=== PATIENT | male | born 1980 | race African-American/Black ===

== ENCOUNTER → 2023-11-02 | Outpatient (REF) | payer OTHER ==
[2023-11-02 18:09] LABS: HEMOGLOBIN 13.5 g/dl (13.5-17.5); MEAN CORPUSCULAR HEMOGLOBIN 26.5 pg (27.0-33.0); MEAN CORPUSCULAR HGB CONC 32.9 g/dl (32.0-36.5); MEAN CORPUSCULAR VOLUME 80.4 fl (80.0-96.0); PLATELET COUNT, AUTOMATED 258 10^3/uL (150-450); WHITE BLOOD COUNT 9.4 10^3/uL (4.0-10.0)
[2023-11-02 18:15] LABS: ALBUMIN 3.4 G/DL (3.2-5.2); ALKALINE PHOSPHATASE 88 U/L (46-116); ALT/SGPT 26 U/L (7.0-40); AST/SGOT 18 U/L (<34); BILIRUBIN,TOTAL 0.3 MG/DL (0.3-1.2); BLOOD UREA NITROGEN 10 MG/DL (9-23); CALCIUM LEVEL 8.8 MG/DL (8.5-10.1); CARBON DIOXIDE LEVEL 26 MMOL/L (20-31); CHLORIDE LEVEL 111 MMOL/L (98-107); CHOLESTEROL LEVEL 149 MG/DL (<200); CREATININE FOR GFR 0.79 MG/DL (0.70-1.30); GLOMERULAR FILTRATION RATE > 60.0 (>60); GLUCOSE, FASTING 100 MG/DL (60-100); HDL CHOLESTEROL 33.8 MG/DL (>40); LDL CHOLESTEROL 104.8 MG/DL (<100); NON-HDL-C 115.2 MG/DL; POTASSIUM SERUM 4.7 MMOL/L (3.5-5.1); SODIUM LEVEL 140 MMOL/L (136-145); TOTAL PROTEIN 6.4 G/DL (5.7-8.2); TRIGLYCERIDES LEVEL 52 MG/DL (<150)
[2023-11-02 18:18] LABS: THYROID STIMULATING HORMONE 1.047 uIU/ML (0.55-4.78)
== END ==
LOC: M LAB REF 17:09
PROVIDERS: ATTEND Physician Assistant
DX: Z68.29 Body mass index [BMI] 29.0-29.9, adult (principal); E66.3 Overweight; Z13.220 Encounter for screening for lipoid disorders; Z13.1 Encounter for screening for diabetes mellitus; R03.0 Elevated blood-pressure reading, without diagnosis of hypertension

== ENCOUNTER 2023-11-08 09:10 | Emergency (ER) | payer OTHER ==
[~2023-11-08] VITALS: Ht 182.9 cm; Wt 97.0 kg
[2023-11-08 09:11] VITALS: BP 122/72; TEMP 98.1; O2SAT 100
[2023-11-08 11:02] LABS: RSV AMPLIFICATION NEGATIVE (NEGATIVE)
== END 2023-11-08 11:57 | disposition home or self-care (01) ==
LOC: M ED 09:10
DX: R51.9 Headache, unspecified (principal); M79.18 Myalgia, other site; F17.200 Nicotine dependence, unspecified, uncomplicated

== ENCOUNTER 2024-01-01 18:13 | Inpatient (IN) | payer OTHER ==
[~2024-01-01] VITALS: Ht 182.9 cm; Wt 99.6 kg
[2024-01-01] MEDS: KETOROLAC 30 MG/ML 1ML VIAL IV ONE (20:57)
[2024-01-01 21:00] LABS: BASO % 0.3 % (0.0-1.0); EOS # 0.1 10^3/uL (0.0-0.5); EOS % 0.5 % (0.0-3.0); HEMATOCRIT 39.8 % (42.0-52.0); HEMOGLOBIN 13.3 g/dl (13.5-17.5); LYMPH # 1.5 10^3/uL (1.5-5.0); LYMPH % 9.6 % (24.0-44.0); MEAN CORPUSCULAR HEMOGLOBIN 26.8 pg (27.0-33.0); MEAN CORPUSCULAR HGB CONC 33.4 g/dl (32.0-36.5); MEAN CORPUSCULAR VOLUME 80.1 fl (80.0-96.0); MONO # 1.1 10^3/uL (0.0-0.8); MONO % 7.1 % (2.0-8.0); NEUTROPHILS # 12.8 10^3/uL (1.5-8.5); NEUTROPHILS % 82.1 % (36.0-66.0); PLATELET COUNT, AUTOMATED 220 10^3/uL (150-450); RED BLOOD COUNT 4.97 10^6/uL (4.30-6.10); WHITE BLOOD COUNT 15.6 10^3/uL (4.0-10.0)
[2024-01-01] MEDS ORDERED: ISOVUE-370 76% 100ML VIAL As Ordered ONE (21:04)
[2024-01-01 21:10] LABS: ERYTHROCYTE SEDIMENTATION RATE 53 mm/hr (0-15)
[2024-01-01] MEDS: NS 1,000 ML IV ONE (21:55)
[2024-01-01] MEDS ORDERED: HOME MED LIST COMPLETE! XX SCH (22:40)
[2024-01-01] MEDS: cefTRIAXone SOD 1 GM in D5W MINI-BAG PLUS 50 ML IV ONE (23:00)
[2024-01-02] VITALS (8 sets, daily range): BP systolic 112–148; BP diastolic 67–93; TEMP 97.2–98.2; O2SAT 96–100
[2024-01-02] MEDS ORDERED: ACETAMINOPHEN TAB 650MG DOSE (2X325MG) PO PRN (00:20)
[2024-01-02] MEDS: NS 1,000 ML IV SCH (01:22)
[2024-01-02] MEDS: PIPERACILLIN/TAZOBACTAM SOD 3.375 GM in D5W MINI-BAG PLUS 50 ML IV SCH (01:22)
[2024-01-02 01:53] LABS: Trichomonas vaginalis (AMP) NOT DETECTED (NEGATIVE)
[2024-01-02 02:17] LABS: GC DNA AMPLIFICATION NEGATIVE (NEGATIVE)
[2024-01-02] MEDS: KETOROLAC 30 MG/ML 1ML VIAL IV PRN (02:44)
[2024-01-02 06:29] LABS: BASO % 0.2 % (0.0-1.0); EOS # 0.2 10^3/uL (0.0-0.5); EOS % 1.3 % (0.0-3.0); HEMATOCRIT 37.5 % (42.0-52.0); HEMOGLOBIN 12.2 g/dl (13.5-17.5); LYMPH # 1.6 10^3/uL (1.5-5.0); LYMPH % 13.8 % (24.0-44.0); MEAN CORPUSCULAR HEMOGLOBIN 26.3 pg (27.0-33.0); MEAN CORPUSCULAR HGB CONC 32.5 g/dl (32.0-36.5); MEAN CORPUSCULAR VOLUME 80.8 fl (80.0-96.0); MONO % 8.3 % (2.0-8.0); NEUTROPHILS # 9.1 10^3/uL (1.5-8.5); NEUTROPHILS % 76.1 % (36.0-66.0); PLATELET COUNT, AUTOMATED 206 10^3/uL (150-450); RED BLOOD COUNT 4.64 10^6/uL (4.30-6.10); WHITE BLOOD COUNT 11.9 10^3/uL (4.0-10.0)
[2024-01-02 06:58] LABS: ALKALINE PHOSPHATASE 80 U/L (46-116); ALT/SGPT 18 U/L (7.0-40); AST/SGOT < 8 U/L (<34); BILIRUBIN,TOTAL 0.5 MG/DL (0.3-1.2); BLOOD UREA NITROGEN 12 MG/DL (9-23); CALCIUM LEVEL 8.6 MG/DL (8.5-10.1); CARBON DIOXIDE LEVEL 26 MMOL/L (20-31); CHLORIDE LEVEL 112 MMOL/L (98-107); CREATININE FOR GFR 0.94 MG/DL (0.70-1.30); GLOMERULAR FILTRATION RATE > 60.0 (>60); GLUCOSE, FASTING 88 MG/DL (60-100); POTASSIUM SERUM 4.1 MMOL/L (3.5-5.1); SODIUM LEVEL 142 MMOL/L (136-145); TOTAL PROTEIN 5.7 G/DL (5.7-8.2)
[2024-01-02] MEDS ORDERED: ACETAMINOPHEN 1000MG 100ML IV BAG As Ordered ONE (13:33)
[2024-01-02] MEDS ORDERED: ONDANSETRON 4MG 2ML VIAL As Ordered ONE (13:34)
[2024-01-02] MEDS ORDERED: propofoL 200 MG/20 ML VIAL As Ordered ONE (13:34)
[2024-01-02] MEDS ORDERED: LIDOCAINE 2% 100MG/5ML SDV (FOR ANES.) As Ordered ONE (13:34)
[2024-01-02] MEDS ORDERED: KETOROLAC 60MG 2ML VIAL As Ordered ONE (13:35)
[2024-01-02] MEDS ORDERED: MIDAZOLAM INJ 2MG/2ML VIAL As Ordered ONE (13:39)
[2024-01-02] MEDS ORDERED: fentaNYL 100 MCG/2 ML INJECTION As Ordered ONE (13:39)
[2024-01-02] MEDS ORDERED: dexmedeTOMIDine (4MCG/ML)200MCG/50ML BTL (PRECEDEX) As Ordered ONE (17:06)
[2024-01-02] MEDS: ceFAZolin 1GM VIAL As Ordered ONE (17:08)
[2024-01-02] MEDS: LIDOCAINE 1% MDV 20ML VIAL As Ordered ONE (17:08)
[2024-01-02] MEDS: BACITRACIN OINTMENT 30GM TUBE As Ordered ONE (17:10)
[2024-01-02] MEDS ORDERED: oxyCODONE 5MG TAB PO PRN (17:20)
[2024-01-02] MEDS ORDERED: ONDANSETRON 4MG 2ML VIAL IV PRN (17:20)
[2024-01-02] MEDS ORDERED: HYDROMORPHONE HCL 0.5 MG/ 0.5 ML SYRINGE IV PRN (17:20)
[2024-01-02] MEDS ORDERED: fentaNYL 100 MCG/2 ML INJECTION IV PRN (17:20)
[2024-01-02] MEDS: LR 1,000 ML IV SCH (17:20)
[2024-01-03 00:51] VITALS: BP 129/85; TEMP 97.2; O2SAT 95
[2024-01-03 02:51] VITALS: BP 117/74; TEMP 97.2; O2SAT 95
[2024-01-03 05:21] VITALS: BP 128/78; TEMP 97.5; O2SAT 98
[2024-01-03 06:33] LABS: BASO % 0.1 % (0.0-1.0); EOS % 0.1 % (0.0-3.0); HEMOGLOBIN 12.3 g/dl (13.5-17.5); LYMPH # 1.1 10^3/uL (1.5-5.0); LYMPH % 6.5 % (24.0-44.0); MEAN CORPUSCULAR HEMOGLOBIN 26.8 pg (27.0-33.0); MEAN CORPUSCULAR HGB CONC 33.2 g/dl (32.0-36.5); MEAN CORPUSCULAR VOLUME 80.6 fl (80.0-96.0); MONO # 0.9 10^3/uL (0.0-0.8); MONO % 5.3 % (2.0-8.0); NEUTROPHILS # 14.3 10^3/uL (1.5-8.5); NEUTROPHILS % 87.5 % (36.0-66.0); PLATELET COUNT, AUTOMATED 211 10^3/uL (150-450); RED BLOOD COUNT 4.59 10^6/uL (4.30-6.10); WHITE BLOOD COUNT 16.3 10^3/uL (4.0-10.0)
[2024-01-03 06:55] LABS: ALBUMIN 2.9 G/DL (3.2-5.2); ALKALINE PHOSPHATASE 83 U/L (46-116); ALT/SGPT 18 U/L (7.0-40); AST/SGOT < 8 U/L (<34); BILIRUBIN,TOTAL 0.6 MG/DL (0.3-1.2); BLOOD UREA NITROGEN 9 MG/DL (9-23); CARBON DIOXIDE LEVEL 27 MMOL/L (20-31); CHLORIDE LEVEL 109 MMOL/L (98-107); CREATININE FOR GFR 0.89 MG/DL (0.70-1.30); GLOMERULAR FILTRATION RATE > 60.0 (>60); GLUCOSE, FASTING 99 MG/DL (60-100); POTASSIUM SERUM 4.3 MMOL/L (3.5-5.1); SODIUM LEVEL 141 MMOL/L (136-145); TOTAL PROTEIN 5.9 G/DL (5.7-8.2)
[2024-01-03 08:34] VITALS: BP 139/84; TEMP 97.9; O2SAT 100
[2024-01-03] MEDS ORDERED: IBUP-1022 PO (11:59)
[2024-01-03] MEDS ORDERED: AMOX875T2 PO (11:59)
== END 2024-01-03 11:45 | disposition home or self-care (01) | DRG 383 ==
LOC: M ED 18:13 → M ED INP 01-02 00:18 → M MS5PR 01-02 02:04
PROVIDERS: ADMIT Internal Medicine; ATTEND Preventive Medicine Undersea and Hyperbaric Medicine
PROC: 0W9M0ZZ Drainage of Male Perineum, Open Approach (ICD-10-PCS; principal; 2024-01-02 16:00)
DX: L02.215 Cutaneous abscess of perineum (principal); F17.200 Nicotine dependence, unspecified, uncomplicated; N49.2 Inflammatory disorders of scrotum